=== PATIENT | female | born 1940 | race Two or more races ===

== ENCOUNTER → 2017-03-23 | Day surgery (SDC) | payer OTHER ==
[~2017-03-23] MED LIST: ATORVASTATIN CA10 MG PO; FOLBIC RF TABL1 EACH PO; LISINOPRIL10 MG PO; VITAMIN D400 UNI2 PO
== END | disposition home or self-care (01) ==
LOC: ADM 03-16 09:00 → CIR.AMB 06:32
DX: N36.41 Hypermobility of urethra (principal); N81.11 Cystocele, midline; N81.6 Rectocele; N81.5 Vaginal enterocele; N81.82 Incompetence or weakening of pubocervical tissue; N81.83 Incompetence or weakening of rectovaginal tissue

== ENCOUNTER 2017-03-30 05:45 | Day surgery (SDC) | payer OTHER ==
[2017-03-30] MEDS ORDERED: ULTRACET PO (08:51)
[2017-03-30] MEDS ORDERED: MACROBID 100 M100 MG PO (08:52)
== END 2017-03-30 11:30 | disposition home or self-care (01) ==
LOC: CIR.AMB 05:45
DX: N81.11 Cystocele, midline (principal); N81.6 Rectocele; N81.5 Vaginal enterocele; N39.3 Stress incontinence (female) (male)

== ENCOUNTER 2018-01-14 01:25 | Inpatient (IN) | payer OTHER ==
[~2018-01-14] VITALS: Ht 154.9 cm; Wt 64.9 kg
[~2018-01-14 01:25] MED LIST changes: +MACROBID 100 M100 MG PO; +ULTRACET PO
[2018-01-16] MEDS ORDERED: CIPRO500 MG PO (10:55)
[2018-01-16] MEDS ORDERED: FLAGYL500MG PO (10:56)
[2018-01-16] MEDS ORDERED: LEVSIN/SL0.125 MG PO (10:56)
[2018-01-16] MEDS ORDERED: PROTONIX40 MG PO (10:57)
== END 2018-01-16 11:06 | disposition home or self-care (01) | DRG 392 ==
LOC: ER 01:25 → SURH 07:01 → SEC-K 07:01 → SURH 19:13
PROC: BW25Y0Z Computerized Tomography (CT Scan) of Chest, Abdomen and Pelvis using Other Contrast, Unenhanced and Enhanced (ICD-10-PCS; principal; 2018-01-14)
PROC: 8E0ZXY6 Isolation (ICD-10-PCS; 2018-01-14)
DX: A09 Infectious gastroenteritis and colitis, unspecified (principal); E86.0 Dehydration

== ENCOUNTER 2018-08-02 23:39 | Emergency (ER) | payer OTHER ==
[~2018-08-02] VITALS: Ht 160 cm; Wt 64.4 kg
[~2018-08-02 23:39] MED LIST changes: +CIPRO500 MG PO; +FLAGYL500MG PO; +LEVSIN/SL0.125 MG PO; +PROTONIX40 MG PO
== END 2018-08-03 06:16 | disposition home or self-care (01) ==
LOC: ER 23:39
DX: K29.60 Other gastritis without bleeding (principal)

== ENCOUNTER 2018-10-17 09:45 | Inpatient (IN) | payer OTHER ==
[~2018-10-17] VITALS: Ht 154.9 cm; Wt 64.4 kg
[2018-10-18] MEDS ORDERED: NOLVADEX10 MG PO (08:28)
[2018-10-27] MEDS ORDERED: PERCOCET 5-3251 EACH PO (15:12)
[2018-10-27] MEDS ORDERED: ELIQUIS2.5 MG PO (15:12)
[2018-10-27] MEDS ORDERED: DUI500 PO (15:12)
== END 2018-10-27 17:50 | DRG 470 ==
LOC: O/R 09:45 → SURH 10-25 04:30
PROVIDERS: ADMIT Orthopaedic Surgery
PROC: 0MNN0ZZ Release Right Knee Bursa and Ligament, Open Approach (ICD-10-PCS; 2018-10-25)
PROC: 0SRC0J9 Replacement of Right Knee Joint with Synthetic Substitute, Cemented, Open Approach (ICD-10-PCS; principal; 2018-10-25 20:45)
DX: M17.11 Unilateral primary osteoarthritis, right knee (principal); M80.00XA Age-related osteoporosis with current pathological fracture, unspecified site, initial encounter for fracture; D62 Acute posthemorrhagic anemia; M85.461 Solitary bone cyst, right tibia and fibula; I10 Essential (primary) hypertension; E11.9 Type 2 diabetes mellitus without complications; Z79.4 Long term (current) use of insulin

== ENCOUNTER 2018-10-27 19:42 | Emergency (ER) | payer OTHER ==
[~2018-10-27] VITALS: Ht 157.5 cm; Wt 67.6 kg
[~2018-10-27 19:42] MED LIST changes: +DUI500 PO; +ELIQUIS2.5 MG PO; +NOLVADEX10 MG PO; +PERCOCET 5-3251 EACH PO
== END 2018-10-28 15:02 ==
LOC: ER 19:42
DX: G89.18 Other acute postprocedural pain (principal); M25.561 Pain in right knee; R50.82 Postprocedural fever; R53.81 Other malaise; Z96.651 Presence of right artificial knee joint

== ENCOUNTER 2018-11-10 03:04 | Emergency (ER) | payer OTHER ==
[~2018-11-10] VITALS: Ht 157.5 cm; Wt 64.4 kg
[2018-11-10] MEDS ORDERED: PHENERGAN50 MG/1 ML IM (07:49)
== END 2018-11-10 07:57 | disposition home or self-care (01) ==
LOC: ER 03:04
DX: K29.60 Other gastritis without bleeding (principal)

== ENCOUNTER 2018-11-17 02:42 | Inpatient (IN) | payer OTHER ==
[~2018-11-17] VITALS: Ht 154.9 cm; Wt 66.7 kg
[~2018-11-17 02:42] MED LIST changes: +PHENERGAN50 MG/1 ML IM
--- NOTE | 2018-11-17 02:47 | NUR ---
SE RECIBE PACIENTE EN SILLA DE AIDA EN COMPANIA DE FAMILIAR CON DIARREAS VOMITOS Y DEBILIDAD.
--- NOTE | 2018-11-17 03:16 | NUR ---
PACIENTE ALERTA Y ORIENTADA POR ANGELIKA ESFERAS. MS. DEL CID ORIENTA A PACIENTE SOBRE PROCEDIMIENTO Y TX, REFIERE ENTENDER. EXTRAE MUESTRAS DE LABORATORIO CON MEDIDAS ASEPTICAS Y ADMINISTRA MEDICAMENTOS BLAISE ORDEN MEDICA.
--- NOTE | 2018-11-17 07:44 | NUR ---
SE RECIBE AL PACIENTE DE TURNO ANTERIOR ALERTA Y ORIENTADO EN LUPE ANGELIKA ESFERAS. PACIENTE CON UN IV FLUID 0.9%NSS BAJANDO A 145ML/HR. PACIENTE EN [address], AL NIVEL MAS BAJO, CON CABECERA A 45 GRADOS Y TIMBRE ACCESIBLE. PACIENTE TIENE PENDIENTE LECTURA DEL CT, U/A Y FECAL PENDIENTE. SE MANTIENE AL PACIENTE BAJO OBSERVACION POR CAMBIOS EN CONDICION.
--- NOTE | 2018-11-17 08:22 | NUR ---
CONSULTA PACIENTE CON MD INTERNISTA .
== END 2018-11-23 17:43 | disposition home or self-care (01) | DRG 392 ==
LOC: ER 02:42 → MEDI 15:14 → SEC-K 15:14 → MEDI 16:36 → MEDJ 16:36
PROVIDERS: ADMIT Internal Medicine
PROC: BW21Y0Z Computerized Tomography (CT Scan) of Abdomen and Pelvis using Other Contrast, Unenhanced and Enhanced (ICD-10-PCS; 2018-11-17)
PROC: 8E0ZXY6 Isolation (ICD-10-PCS; 2018-11-18)
PROC: 02HV33Z Insertion of Infusion Device into Superior Vena Cava, Percutaneous Approach (ICD-10-PCS; 2018-11-19)
PROC: 0DB68ZX Excision of Stomach, Via Natural or Artificial Opening Endoscopic, Diagnostic (ICD-10-PCS; principal; 2018-11-21)
PROC: 0DB78ZX Excision of Stomach, Pylorus, Via Natural or Artificial Opening Endoscopic, Diagnostic (ICD-10-PCS; 2018-11-21)
DX: K29.50 Unspecified chronic gastritis without bleeding (principal); R65.10 Systemic inflammatory response syndrome (SIRS) of non-infectious origin without acute organ dysfunction; A04.72 Enterocolitis due to Clostridium difficile, not specified as recurrent; Z96.651 Presence of right artificial knee joint

== ENCOUNTER 2021-03-14 08:15 | Inpatient (IN) | payer OTHER ==
[~2021-03-14] VITALS: Ht 154.9 cm; Wt 63.5 kg
[2021-03-14] MEDS ORDERED: PEPCID AC10 MG PO (10:05)
[2021-03-14] MEDS ORDERED: TAMOXIFEN PO (10:06)
[2021-03-18] MEDS ORDERED: METHSCOPOLAMIN2.5 MG (07:53)
[2021-03-18] MEDS ORDERED: ATORVASTATIN CA10 MG (07:53)
[2021-03-18] MEDS ORDERED: TAMOXIFEN CITRA10 MG (07:54)
[2021-03-21] MEDS ORDERED: DUI500 PO (08:54)
[2021-03-21] MEDS ORDERED: PERCOCET 5-3251 EACH PO (08:54)
[2021-03-21] MEDS ORDERED: ELIQUIS2.5 MG PO (08:54)
== END 2021-03-21 17:47 | DRG 470 ==
LOC: O/R 03-18 06:15 → SURH 03-18 06:15
PROVIDERS: ADMIT Orthopaedic Surgery; ATTEND Orthopaedic Surgery
PROC: 0SRD0J9 Replacement of Left Knee Joint with Synthetic Substitute, Cemented, Open Approach (ICD-10-PCS; principal; 2021-03-18 08:15)
PROC: 30233N1 Transfusion of Nonautologous Red Blood Cells into Peripheral Vein, Percutaneous Approach (ICD-10-PCS; 2021-03-19)
DX: M17.12 Unilateral primary osteoarthritis, left knee (principal); D62 Acute posthemorrhagic anemia; M81.0 Age-related osteoporosis without current pathological fracture; M22.12 Recurrent subluxation of patella, left knee; E66.01 Morbid (severe) obesity due to excess calories; I10 Essential (primary) hypertension; E11.9 Type 2 diabetes mellitus without complications; Z79.4 Long term (current) use of insulin; Z20.822 Contact with and (suspected) exposure to COVID-19; C50.919 Malignant neoplasm of unspecified site of unspecified female breast